=== PATIENT | female | born 1950 | race Caucasian/White ===

== ENCOUNTER → 2017-02-09 | Outpatient (CLI) | payer MEDICAID ==
[~2017-02-09] MED LIST: ACTOS 45MG45 MG/TAB PO; ASPIRIN E.C. 8181 MG PO; BONIVA2.5 MG; COLACE 100100 MG/CAP PO; GLUCOPHAGE XR500 M1 PO; HEALTH CARE AM500 M3 PO; LEVOXYL0.075 MG PO; MIRALAX PA17 GM/Dose PO; MULTIPLE VITAMI1 CAP PO; PREMARIN .3MG0.3 MG PO; PRINIVIL10 MG PO; REFRESH DRY EYE15 ML OP; VYTORIN 10 MG-41 TAB PO
== END ==
LOC: MC.RAD 13:40
DX: Z12.31 Encounter for screening mammogram for malignant neoplasm of breast (principal)

== ENCOUNTER → 2018-02-10 | Outpatient (CLI) | payer MEDICAID | LOC: MC.RAD 11:31 | DX: Z12.31 Encounter for screening mammogram for malignant neoplasm of breast (principal) ==